=== PATIENT | female | born 1990 | race Asian ===

== ENCOUNTER 2019-02-01 22:19 | Inpatient (IN) | payer BC ==
[~2019-02-01] VITALS: Ht 162.6 cm; Wt 68.2 kg
[2019-02-03 08:03] VITALS: BP 98/63
== END 2019-02-03 15:00 | disposition home or self-care (01) | DRG 807 ==
LOC: LDOP 22:19 → LDIP 22:24 → 2NW 02-02 17:00
PROVIDERS: ADMIT Obstetrics & Gynecology; ATTEND Obstetrics & Gynecology
PROC: 3E033VJ Introduction of Other Hormone into Peripheral Vein, Percutaneous Approach (ICD-10-PCS; principal; 2019-02-02)
PROC: 10E0XZZ Delivery of Products of Conception, External Approach (ICD-10-PCS; 2019-02-02)
DX: O48.0 Post-term pregnancy (principal); Z37.0 Single live birth; Z3A.40 40 weeks gestation of pregnancy; Z90.710 Acquired absence of both cervix and uterus
CPT/HCPCS: 36415; S0020; 85025; 86850; 86900; 90715; G0378; J2540; J3010; J2590; J7050; J7120